=== PATIENT | male | born 1945 | race Caucasian/White ===

== ENCOUNTER 2022-06-04 04:53 | Day surgery (SDC) | payer OTHER, MEDICARE ==
[2022-06-01 15:26] VITALS: BMI 25.0
[~2022-06-04 04:53] MED LIST: BUPIVACAINE HCL/PF 0.5% (5MG/ML) 10 ML VIAL IJ ONE; LIDOCAINE HCL 1%, 10 MG/ML (20ML VIAL) NR ONE
[2022-06-04] MEDS ORDERED: BUPIVACAINE HCL/PF 0.25% (2.5MG/ML) 10 ML VIAL ONE (09:28)
[2022-06-04] MEDS ORDERED: MIDAZOLAM HCL 2 MG/2 ML SINGLE DOSE VIAL ONE (09:50)
[2022-06-04] MEDS ORDERED: ceFAZolin SODIUM 1 GM VIAL IVPB ONE (10:23)
[2022-06-04] MEDS ORDERED: BUPIVACAINE HCL/PF 0.5% (5MG/ML) 10 ML VIAL IJ ONE (10:24)
[2022-06-04] MEDS ORDERED: LIDOCAINE HCL 1%, 10 MG/ML (20ML VIAL) NR ONE (10:24)
[2022-06-04] MEDS ORDERED: oxyCODONE HCL 5 MG TABLET PO PRN (10:36)
[2022-06-04] MEDS ORDERED: ONDANSETRON 4 MG/2 ML VIAL IVPUSH PRN (10:36)
[2022-06-04] MEDS ORDERED: ROCURONIUM BROMIDE 50 MG/5 ML SYRINGE ONE (10:43)
[2022-06-04] MEDS ORDERED: NEOSTIGMINE METHYLSULFATE 0.5 MG/ML - 10 ML MDV ONE (10:43)
[2022-06-04] MEDS ORDERED: KETOROLAC TROMETHAMINE 30 MG/1 ML VIAL ONE (10:44)
[2022-06-04] MEDS ORDERED: ceFAZolin SODIUM 1 GM VIAL ONE (10:44)
[2022-06-04] MEDS ORDERED: ONDANSETRON 4 MG/2 ML VIAL ONE (10:44)
[2022-06-04] MEDS ORDERED: GLYCOPYRROLATE 0.2 MG/1 ML VIAL ONE (10:44)
[2022-06-04] MEDS ORDERED: DEXAMETHASONE SOD PHOSPHATE 4 MG/1 ML VIAL ONE (10:44)
[2022-06-04] MEDS ORDERED: LIDOCAINE HCL/PF 2% SDV 5ML VIAL ONE (10:44)
[2022-06-04] MEDS ORDERED: LACTATED RINGERS SOLUTION 1,000 ML IV SCH (10:45)
[2022-06-04 12:16] VITALS: RESP 18
[2022-06-04 13:15] VITALS: BP 141/76; PULSE 60; TEMP 98.9
== END 2022-06-04 13:10 | disposition home or self-care (01) ==
LOC: JASU-SURG 04:53
PROVIDERS: ATTEND Surgery
PROC: 0WQF0ZZ Repair Abdominal Wall, Open Approach (ICD-10-PCS; principal; 2022-06-04 10:00)
DX: K42.9 Umbilical hernia without obstruction or gangrene (principal)
CPT/HCPCS: 88302-TC; 94760